=== PATIENT | female | born 1985 | race Caucasian/White ===

== ENCOUNTER 2020-06-22 20:30 | Observation (INO) | payer BC ==
[~2020-06-22 20:30] MED LIST: ELECTROLYTE-148 SOLN 500 ML IV ONE
--- OUTSIDE RECORDS SUMMARY | 2020-06-22 21:04 | XMS ---
:1985 Author Organization [facility] Support Name Relationship Address Phone [facility] [employer] Unavailable [phone] [place] [address] MYRIAM ENNIS MOTHER [address] [place] [address] MYRIAM ENNIS Mother [address] [place] [address] Re-disclosure Warning The records that you are about to access may contain information from federally- assisted alcohol or drug abuse programs. If such information is present, then the following federally mandated warning applies: This information has been disclosed to you from records protected by federal confidentiality rules (42 CFR part 2). The federal rules prohibit you from making any further disclosure of this information unless further disclosure is expressly permitted by the written consent of the person to whom it pertains or as otherwise permitted by 42 CFR part 2. A general authorization for the release of medical or other information is NOT sufficient for this purpose. The Federal rules restrict any use of the information to criminally investigate or prosecute any alcohol or drug abuse patient.The records that you are about to access may contain highly sensitive health information, the redisclosure of which is protected by Article 27-F of the [facility] Public Health law. If you continue you may haveaccess to information: Regarding HIV / AIDS; Provided by facilities licensed or operated by the [facility] Office of Mental Health; or Provided by the [facility] Office for People With Developmental Disabilities. If such information is present, then the following [facility] mandated warning applies: This information has been disclosed to you from confidential records which are protected by state law. State law prohibits you from making any further disclosure of this information without the specific written consent of the person to whom it pertains, or as otherwise permitted by law. Any unauthorized further disclosure in violation of state law may result in a fine or halfway sentence or both. A general authorization for the release of medical or other information is NOT sufficient authorization for further disclosure. Encounters Encounter Providers Location Date Indications Data Source(s ) Outpatient ALL 04/28/2020 04:47:01 Eric morgan ([facility]) Insurance Providers Payer name Policy type Policy ID Covered Covered alliance party's Policy P haseeb / Coverage alliance party ID relationship to Singh Inf ormation type singh ZAKI CONN [id number] SP [id number] [employer] 19 SELF PAY SP INSURANCE
[2020-06-22] MEDS ORDERED: ELECTROLYTE-148 SOLN 500 ML IV ONE (21:30)
[2020-06-22 22:03] LABS: EPI CELLS >36 /uL (0-25.1); HYALINE CASTS 21 /uL (0-3.1); URINE APPEARANCE TURBID; URINE BACTERIA 5718 /uL (0-1359); URINE BILIRUBIN 2+ (NEGATIVE); URINE COLOR DK YELLOW; URINE GLUCOSE (UA) NEGATIVE (NEGATIVE); URINE KETONE 3+ (NEGATIVE); URINE LEUK ESTERASE TRACE (NEGATIVE); URINE NITRITE POSITIVE (NEGATIVE); URINE PROTEIN 1+ (NEGATIVE); URINE RBC 30 /uL (0-23.9); URINE WBC 181 /uL (0-25.8)
[2020-06-22] MEDS ORDERED: CEFAZOLIN 2 GM/D5W 2 GM/50 ML ML IVPB ONE ×2 (22:45→22:47)
[2020-06-22] MEDS ORDERED: BETAMET ACET/BETAMET NA PH 30 MG/5 ML VIAL ONE (22:47)
[2020-06-22] MEDS: BETAMET ACET/BETAMET NA PH 30 MG/5 ML VIAL IM SCH (23:00)
[2020-06-22 23:19] VITALS: PULSE 108; TEMP 98.6
--- NOTE | 2020-06-22 23:32 | PD.OB.PROG ---
Past Medical History - Primary Care Physician Documenting Provider Type: Laborist - Admission Chief Complaint: contractions History Source: Patient, Medical Record Limitations to Obtaining History: No Limitations Patient Type: Established - Nursing Documentation Maternal Triage Index: Maternal Triage Index ( Priority 3, Prompt MFTI) Nursing Documentation Reviewed: Yes - Past Medical History SPOUTER: Denies/None Cardio/Vascular: Denies/None Pulmonary: Asthma, Pulmonary Embolus Gastrointestinal: Denies/None Hepatobiliary: Denies/None ...: 4 ...Para: 3 ...Term: 1 ...: 2 ...Induced : 1 ...Living Children: 3 Heme/Onc: Denies/None Infectious Disease: Denies/None Psych: Denies/None Endocrine: Denies/None - Past Surgical History Past Surgical History: Yes: None - Smoking History Smoking history: Never smoked Have you smoked in the past 12 months: No - Alcohol/Substance Use Hx Alcohol Use: No Review of Systems - Review of Systems Constitutional: reports: No Symptoms Eyes: reports: No Symptoms HENT: reports: No Symptoms Neck: reports: No Symptoms Cardiovascular: reports: No Symptoms Respiratory: reports: No Symptoms Gastrointestinal: reports: No Symptoms Genitourinary: reports: Pain Breasts: reports: No Symptoms Reported Musculoskeletal: reports: No Symptoms Integumentary: reports: No Symptoms Neurological: reports: No Symptoms Endocrine: reports: No Symptoms Hematology/Lymphatic: reports: No Symptoms Psychiatric: reports: No Symptoms Physical Exam - Obstetrical Vital Signs: Vital Signs Temperature 98.6 F 06/22/20 23:04 Pulse Rate 108 H 06/22/20 23:04 Respiratory Rate 06/22/20 23:04 Blood Pressure 126/85 06/22/20 23:04 O2 Sat by Pulse Oximetry (%) Constitutional: Yes: Well Nourished, No Distress, Calm Eyes: Yes: WNL, Conjunctiva Clear, EOM Intact HENT: Yes: WNL, Atraumatic, Normocephalic Neck: Yes: WNL, Supple, Trachea Midline Cardiovascular: Yes: WNL, Regular Rate and Rhythm Lungs: Normal air movement - Abdominal Exam/OB Contractions: Yes Regularity: Irregular Intensity: Mild Monitor Mode: External Heart Rate (range): 150 mod varibility +accels; variable decel to 90s Category: I Accelerations: Uniform Decelerations: Variable - Vaginal Exam/OB Vaginal Exam Deferred: No Vaginal Bleeding: No Speculum Exam: No Dilatation (cm): 1 Effacement (%): 0 Amniotic Membrane Status: Intact Presentation: Vertex/Position Station: -3 - Physical Exam Musculoskeletal: Yes: WNL Extremities: Yes: WNL Integumentary: Yes: WNL ...Motor Strength: WNL Psychiatric: Yes: WNL Assessment/Plan 34yo SIUP at 32+ weeks with c/o contractions. urine dip positive, suspect UTI observation for now given contractions and h/o ptl will given betamethasone kefzol for probably UTI based on u/a monitor contractions if increase in contractions or change in exam, would recommend transfer to [facility] continue lovenox for now
[2020-06-23] MEDS ORDERED: ELECTROLYTE-148 SOLN 1,000 ML IV ONE (00:30)
[2020-06-23] MEDS ORDERED: CEFAZOLIN 2 GM/D5W 2 GM/50 ML ML IVPB ONE ×2 (06:27→06:45)
[2020-06-23] MEDS ORDERED: NIFEdipine 10 MG CAPSULE (FP) PO ONE (09:00)
--- NOTE | 2020-06-23 09:27 | PN ---
Progress Note (short form) - Note Progress Note: Patient admitted for observation. Observed in the labor delivery unit overnight with active hydration. Patient was complaining of backache and some contractions. They were irregular. heart was reactive without decelerations. Occasional contractions on the judy tor. I examined her this morning at 8:15 AM. Compared my examination today to the 1 last night. It is unchanged. Cervix is closed, long and presenting part is high. No amniotic fluid leakage, bleeding, etc. Patient was give antibiotic for possible urinary tract infection. I discussed with patient and will continue cephalosporins for the whole week unless cultures come back completely negative and she is asymptomatic. In addition she will be placed on nifedipine 20 mg 3 times daily to reduce the contractions. Follow-up in the office in 48 hours with ultrasound. Second dose of betametha balbina kemp at about 8 PM. I discussed with patient her noncompliance. I understand her life situation but she must be more attentive to what needs to be done. She is high risk and I would like to have at least 5 to 6 weeks out of this before delivery. If she goes to labor anytime soon she may have to be delivered at [facility]. Patient is to continue Lovenox. Nifedipine and Keflex called into her pharmacy. All questions answered.
[2020-06-23 11:07] VITALS: BP 125/85; BMI 40.9
[2020-06-23] MEDS: BETAMET ACET/BETAMET NA PH 30 MG/5 ML VIAL IM SCH (23:06)
== END 2020-06-23 11:15 | disposition home or self-care (01) ==
LOC: JDEL 20:30 → JLDR 23:30
PROVIDERS: ADMIT Specialist; ATTEND Specialist
PROC: 3E03329 Introduction of Other Anti-infective into Peripheral Vein, Percutaneous Approach (ICD-10-PCS; principal; 2020-06-22)
PROC: 3E033GC Introduction of Other Therapeutic Substance into Peripheral Vein, Percutaneous Approach (ICD-10-PCS; 2020-06-22)
DX: O60.03 Preterm labor without delivery, third trimester (principal); Z3A.32 32 weeks gestation of pregnancy
CPT/HCPCS: 81003; 96365; 96366; 96367; 96372; G0378

== ENCOUNTER 2020-09-29 18:55 | Emergency (ER) | payer BC ==
[2020-09-29 19:08] VITALS: BMI 38.4
[2020-09-29] MEDS ORDERED: SODIUM CHLORIDE 1,000 ML IV STA (20:11)
[2020-09-29] MEDS ORDERED: ACETAMINOPHEN 1000 MG/100 ML VIAL (NON FORMULARY) IVPB ONE (20:12)
[2020-09-29] MEDS ORDERED: ACETAMINOPHEN INJECTION 100 ML IVPB ONE (20:40)
[2020-09-29 21:52] LABS: BASO % 0.7 % (0-2.0); EOS % 7.5 % (0-4.5); HEMATOCRIT 35.8 % (32.4-45.2); HEMOGLOBIN 11.9 GM/dL (10.7-15.3); MCH 30.4 pg (25.7-33.7); MCHC 33.3 g/dl (32.0-36.0); MEAN CELL VOLUME 91.1 fl (80-96); MEAN PLT VOLUME 8.6 fl (7.5-11.1); MONO % 10.7 % (3.8-10.2); NEUT % 64.1 % (42.8-82.8); PLATELET COUNT 234 K/MM3 (134-434); RBC 3.93 M/mm3 (3.60-5.2); RDW 14.3 % (11.6-15.6); WHITE BLOOD COUNT 5.8 K/mm3 (4.0-10.0)
[2020-09-29 22:01] LABS: EPI CELLS 21 /uL (0-25.1); HYALINE CASTS 22 /uL (0-3.1); PH,URINE 5.5 (5.0-8.0); URINE APPEARANCE TURBID; URINE BACTERIA 168 /uL (0-1359); URINE BILIRUBIN 1+ (NEGATIVE); URINE COLOR RED; URINE GLUCOSE (UA) NEGATIVE (NEGATIVE); URINE KETONE TRACE (NEGATIVE); URINE LEUK ESTERASE 2+ (NEGATIVE); URINE NITRITE NEGATIVE (NEGATIVE); URINE PROTEIN 2+ (NEGATIVE); URINE RBC 17193 /uL (0-23.9); URINE WBC 424 /uL (0-25.8)
[2020-09-29 22:12] LABS: ALBUMIN 3.6 g/dl (3.4-5.0); BLOOD UREA NITROGEN 4.6 mg/dL (7-18); CALCIUM 8.9 mg/dL (8.5-10.1)
[2020-09-29 22:15] LABS: CREATININE 0.8 mg/dL (0.55-1.3)
[2020-09-29 22:17] LABS: BILIRUBIN,TOTAL 0.7 mg/dL (0.2-1); TOT PROT 7.1 g/dl (6.4-8.2)
[2020-09-29] MEDS ORDERED: morphine CARPU-JECT 4 MG/1 ML DISP.SYRIN IVPUSH ONE (23:05)
[2020-09-30] MEDS ORDERED: morphine SULFATE 4 MG/ML VIAL ONE (00:14)
[2020-09-30] MEDS ORDERED: CEFTRIAXONE 1,000 MG in DEXTROSE 5%-WATER - 50 ML IVPB ONE (00:37)
[2020-09-30] MEDS ORDERED: cefTRIAXone SODIUM 1 GM VIAL ONE (00:53)
[2020-09-30] MEDS ORDERED: KETOROLAC TROMETHAMINE 30 MG/1 ML VIAL IVPUSH ONE (01:05)
[2020-09-30 01:20] VITALS: BP 154/99; PULSE 83; TEMP 98
[2020-09-30] MEDS ORDERED: KETOROLAC TROMETHAMINE 30 MG/1 ML VIAL ONE (01:23)
== END 2020-09-30 03:14 | disposition home or self-care (01) ==
LOC: JER 18:55
PROC: 3E033GC Introduction of Other Therapeutic Substance into Peripheral Vein, Percutaneous Approach (ICD-10-PCS; principal; 2020-09-29)
PROC: 3E0337Z Introduction of Electrolytic and Water Balance Substance into Peripheral Vein, Percutaneous Approach (ICD-10-PCS; principal; 2020-09-29)
PROC: 3E033GC Introduction of Other Therapeutic Substance into Peripheral Vein, Percutaneous Approach (ICD-10-PCS; 2020-09-30)
DX: K52.9 Noninfective gastroenteritis and colitis, unspecified (principal)
CPT/HCPCS: 36415; 74177-TC; 80053; 81003; 82272; 84703; 85025; 87086; 96361; 96365; 96368; 96375; 99285-25; J0131; Q9967

== ENCOUNTER 2021-09-27 18:01 | Emergency (ER) | payer BC ==
[2021-09-27 19:03] VITALS: BP 130/75; PULSE 89; TEMP 98.9; BMI 28.7
[2021-09-27] MEDS ORDERED: ALBUTEROL SO4 2.5/IPRATROPIUM 0.5 INH SOL 3 ML VIAL.NEB. NEB ONE ×2 (19:26→20:09)
[2021-09-27] MEDS ORDERED: DEXAMETHASONE LIQUID 0.5 MG/5 ML PO ONE (19:26)
[2021-09-27] MEDS ORDERED: DEXAMETHASONE SOD PHOSPHATE 10 MG/1 ML VIAL ONE (20:09)
== END 2021-09-27 21:42 | disposition home or self-care (01) ==
LOC: JER 18:01
PROC: 3E0F7GC Introduction of Other Therapeutic Substance into Respiratory Tract, Via Natural or Artificial Opening (ICD-10-PCS; principal; 2021-09-27)
DX: J06.9 Acute upper respiratory infection, unspecified (principal); J09.X2 Influenza due to identified novel influenza A virus with other respiratory manifestations; J45.21 Mild intermittent asthma with (acute) exacerbation
CPT/HCPCS: 71046-TC-FY; 87804; 94640; 99284-25; C9803; U0003; U0005

== ENCOUNTER 2023-08-01 13:19 | Emergency (ER) | payer BC ==
[2023-08-01 13:30] VITALS: BP 128/85; PULSE 80; RESP 16; TEMP 98.5; BMI 30.1
[2023-08-01] MEDS ORDERED: OXYMETAZOLINE 0.05% NASAL SOLUTION 15 ML BOTTLE NS ONE (14:25)
[2023-08-01] MEDS ORDERED: predniSONE 20 MG TABLET (UD) PO ONE (14:34)
[2023-08-01] MEDS ORDERED: predniSONE 20 MG TABLET (UD) ONE (14:38)
== END 2023-08-01 18:43 | disposition home or self-care (01) ==
LOC: JER 13:19
DX: J33.9 Nasal polyp, unspecified (principal); Z20.822 Contact with and (suspected) exposure to COVID-19
CPT/HCPCS: 0241U-QW; 99283-25